=== PATIENT | male | born 1960 | race Caucasian/White ===

== ENCOUNTER 2025-03-25 04:37 | Emergency (ER) | payer OTHER, MEDICARE ==
[2025-03-25 05:49] LABS: Basophils # (A) 0.05 10*3/uL (0.00-0.10); Basophils % (A) 0.6 %; Eosinophils # (A) 0.22 10*3/uL (0.04-0.35); Eosinophils % (A) 2.6 %; HCT 37.1 % (39.6-50.0); HGB 12.7 g/dL (13.0-17.0); Lymphocytes # (A) 1.21 10*3/uL (0.90-5.00); Lymphocytes % (A) 14.3 %; MCH 29.9 pg (27.0-32.0); MCHC 34.2 g/dL (32.0-37.0); MCV 87.3 fL (80.0-97.0); Monocytes # (A) 0.72 10*3/uL (0.20-1.00); Monocytes % (A) 8.5 %; Neutrophils # (A) 6.25 10*3/uL (1.80-7.70); Neutrophils % (A) 73.6 %; Platelet Count 241 10*3/uL (140-440); RBC 4.25 10*6/uL (4.40-5.60); RDW 14.4 % (11.5-14.5); WBC 8.48 10*3/uL (4.50-10.00)
[2025-03-25 06:27] LABS: ALT 27 U/L (4-49); AST 30 U/L (17-59); African American GFR (CKD) 58 (>60 ml/min/1.73 sqM); Albumin 4.2 g/dL (3.5-5.0); Alkaline Phosphatase 65 U/L (38-126); Anion Gap 7 mmol/L; Blood Urea Nitrogen 30 mg/dL (9-20); Calcium 8.6 mg/dL (8.4-10.2); Carbon Dioxide 25 mmol/L (22-30); Chloride 108 mmol/L (98-107); Creatine Kinase 365 U/L (55-170); Glucose 119 mg/dL (74-99); Non-African American GFR(CKD) 51 (>60 ml/min/1.73 sqM); Potassium 4.7 mmol/L (3.5-5.1); Sodium 140 mmol/L (137-145); Total Protein 6.6 g/dL (6.3-8.2)
--- NOTE | 2025-03-25 06:29 | ED ---
General Adult HPI - General Chief complaint: Back Pain/Injury Stated complaint: Lower Back/Kidney Pain, Vomiting Time Seen by Provider: 03/25/25 04:50 Source: patient, RN notes reviewed Mode of arrival: ambulatory Limitations: no limitations - History of Present Illness Initial comments: 64-year-old male with no reported medical conditions presenting to emergency department with his for concerns of bilateral flank and back pain that started this morning at 1:00 and woke him up from sleep. He states that the pain is located to his flank on bilateral sides and mildly radiates. Denies radiation into his abdomen. States that he had episode of emesis this morning as well. Reports that yesterday he had 1 episode of what he reports as brown-colored urine however after that it has been clear. states that he had a fall about 4 days ago onto his back. Denies hematuria, dysuria, increased urinary frequency or urgency, previous surgeries of the abdomen, history of kidney stones. - Related Data Previous Rx's Medication Instructions Recorded HYDROcodone/APAP 5-325MG [[place] 5] 1 each PO Q6HR PRN #12 tab 03/25/25 Tamsulosin [Flomax] 0.4 mg PO DAILY #7 cap 03/25/25 Allergies Allergy/AdvReac Type Severity Reaction Status Date / Time No Known Allergies Allergy Verified 03/25/25 04:58 Review of Systems ROS Statement: Those systems with pertinent positive or pertinent negative responses have been documented in the HPI. ROS Other: All systems not noted in ROS Statement are negative. General Exam Limitations: no limitations Neck exam: Present: normal inspection. Absent: tenderness, meningismus, lymphadenopathy Respiratory exam: Present: normal lung sounds bilaterally. Absent: respiratory distress, wheezes, rales, rhonchi, stridor Cardiovascular Exam: Present: regular rate, normal rhythm, normal heart sounds. Absent: systolic murmur, diastolic murmur, rubs, gallop, clicks GI/Abdominal exam: Present: soft, normal bowel sounds. Absent: distended, tenderness, guarding, rebound, rigid Extremities exam: Present: normal inspection, full ROM, normal capillary refill. Absent: tenderness, pedal edema, joint swelling, calf tenderness Back exam: Present: tenderness (left flank ecchymosis and scabbing, no bleeding), CVA tenderness (L). Absent: CVA tenderness (R) Course Vital Signs 03/25/25 03/25/25 03/25/25 04:51 08:21 08:41 Temperature 98.2 F 98.4 F 98.0 F Pulse Rate 52 L 76 76 Respiratory 18 20 20 Rate Blood Pressure 166/85 145/79 146/76 O2 Sat by Pulse 99 99 99 Oximetry Medical Decision Making - Medical Decision Making Was pt. sent in by a medical professional or institution (, PA, DAYCARE WORKER, urgent care, hospital, or alf...) When possible be specific @ -No Did you speak to anyone other than the patient for history (EMS, parent, family, police, friend...)? What history was obtained from this source @ -No Did you review nursing and triage notes (agree or disagree)? Why? @ -I reviewed and agree with nursing and triage notes Were old charts reviewed (outside hosp., previous admission, EMS record, old EKG, old radiological studies, urgent care reports/EKG's, alf records)? Report findings @ -No old charts were reviewed Differential Diagnosis (chest pain, altered mental status, abdominal pain women, abdominal pain men, vaginal bleeding, weakness, fever, dyspnea, syncope, headache, dizziness, GI bleed, back pain, seizure, CVA, palpatations, mental health, musculoskeletal)? @ -Differential Back Pain: Strain, zoster, cauda equina syndrome, epidural abscess, vertebral osteomyelitis, discitis, fracture, subluxation, disc herniation, DJD, spinal stenosis, dissection, AAA, pancreatitis, peptic ulcer disease, pyelonephritis, kidney stone, this is not meant to be an all-inclusive list. EKG interpreted by me (3pts min.). @ -None X-rays interpreted by me (1pt min.). @ -None done CT interpreted by me (1pt min.). @ -CT of the abdomen and pelvis without contrast reveals a minimal left hydroureteronephrosis with an obstructing 4 mm calculus at the UPJ U/S interpreted by me (1pt. min.). @ -None done What testing was considered but not performed or refused? (CT, X-rays, U/S, labs)? Why? @ -None What meds were considered but not given or refused? Why? @ -None Did you discuss the management of the patient with other professionals (professionals i.e. , PA, DAYCARE WORKER, lab, RT, psych nurse, social sciences chair, logging worker, teacher, tank officer, supervisor case loading)? Give summary @ -No Was smoking cessation discussed for >3mins.? @ -No Was critical care preformed (if so, how long)? @ -No Were there social determinants of health that impacted care today? How? (Homelessness, low income, unemployed, alcoholism, drug addiction, transportation, low edu. Level, literacy, decrease access to med. care, [facility], rehab)? @ -No Was there de-escalation of care discussed even if they declined (Discuss DNR or withdrawal of care, Hospice)? DNR status @ -No What co-morbidities impacted this encounter? (DM, HTN, Smoking, COPD, CAD, Can cer, CVA, ARF, Chemo, Hep., AIDS, mental health diagnosis, sleep apnea, morbid obesity)? @ -None Was patient admitted / discharged? Hospital course, mention meds given and route, prescriptions, significant lab abnormalities, going to OR and other pertinent info. @ -Discharge. 64-year-old male presenting with complaints of bilateral flank pain left worse than right. Patient noted to have ecchymosis and scabbing over the left flank that is reproducible on examination, left CVA tenderness. He is provided with Tylenol for pain relief. Patient's labs reveal mild ALLY with a creatinine of 1.44 and a BUN of 30, elevated CK of 365. Urinalysis reveals red cells and blood with no signs of infection. He is provided with liter of fluids for ALLY. Believe that CK is mildly elevated due to exertional dehydration. CT imaging of the abdomen pelvis reveals a 4 mm obstructing calculus at the UPJ with a left hydroureteronephrosis. On reevaluation patient states that his pain is resolved after Tylenol administration. He is provided with outpatient prescription for [place] and Flomax and provided urology follow-up. Case discussed with my attending Dr. Shipman Undiagnosed new problem with uncertain prognosis? @ -No Drug Therapy requiring intensive monitoring for toxicity (Heparin, Nitro, Insulin, Cardizem)? @ -No Were any procedures done? @ -No Diagnosis/symptom? @ -kidney stone Acute, or Chronic, or Acute on Chronic? @ -acute Uncomplicated (without systemic symptoms) or Complicated (systemic symptoms)? @ -uncomplicated Side effects of treatment? @ -No Exacerbation, Progression, or Severe Exacerbation? @ -No Poses a threat to life or bodily function? How? (Chest pain, USA, MS, pneumonia, PE, COPD, DKA, ARF, appy, cholecystitis, CVA, Diverticulitis, Homicidal, Suici alice, threat to staff... and all critical care pts) @ -No - Lab Data Result diagrams: 03/25/25 05:25 03/25/25 05: Lab Results 03/25/25 03/25/25 03/25/25 Range/Units 05:25 05:25 06:37 WBC 8.48 (4.50-10.00) 10*3/uL RBC 4.25 L (4.40-5.60) 10*6/uL Hgb 12.7 L (13.0-17.0) g/dL Hct 37.1 L (39.6-50.0) % MCV 87.3 (80.0-97.0) fL MCH 29.9 (27.0-32.0) pg MCHC 34.2 (32.0-37.0) g/dL Plt Count 241 (140-440) 10*3/uL MPV 10.0 (9.5-12.2) fL Immature Gran % (Auto) 0.4 % Neutrophils % 73.6 % Lymphocytes % 14.3 % Monocytes % 8.5 % Eosinophils % 2.6 % Basophils % 0.6 % Immature Gran # 0.03 (0.00-0.04) 10*3/uL Neutrophils # 6.25 (1.80-7.70) 10*3/uL Lymphocytes # 1.21 (0.90-5.00) 10*3/uL Monocytes # 0.72 (0.20-1.00) 10*3/uL Eosinophils # 0.22 (0.04-0.35) 10*3/uL Basophils # 0.05 (0.00-0.10) 10*3/uL Sodium 140 (137-145) mmol/L Potassium 4.7 (3.5-5.1) mmol/L Chloride 108 H (98-107) mmol/L Carbon Dioxide 25 (22-30) mmol/L Anion Gap 7 mmol/L BUN 30 H (9-20) mg/dL Creatinine 1.44 H (0.66-1.25) mg/dL Est GFR (CKD-EPI)AfAm 58 (>60 ml/min/1.73 sqM) Est GFR (CKD-EPI)NonAf 51 (>60 ml/min/1.73 sqM) Glucose 119 H (74-99) mg/dL Calcium 8.6 (8.4-10.2) mg/dL Total Bilirubin 0.4 (0.2-1.3) mg/dL AST 30 (17-59) U/L ALT 27 (4-49) U/L Alkaline Phosphatase 65 (38-126) U/L Creatine Kinase 365 H (55-170) U/L Total Protein 6.6 (6.3-8.2) g/dL Albumin 4.2 (3.5-5.0) g/dL Urine Color Colorless Urine Appearance Clear (Clear) Urine pH 5.5 (5.0-8.0) Ur Specific [place] 1.017 (1.001-1.035) Urine Protein Negative (Negative) Urine Glucose (UA) Negative (Negative) Urine Ketones Trace H (Negative) Urine Blood Large H (Negative) Urine Nitrite Negative (Negative) Urine Bilirubin Negative (Negative) Urine Urobilinogen <2.0 (<2.0) mg/dL Ur Leukocyte Esterase Negative (Negative) Urine RBC >182 H (0-5) /hpf Urine WBC 1 (0-5) /hpf Ur Squamous Epith Cells <1 (0-4) /hpf Urine Bacteria Rare H (None) /hpf Urine Mucus Rare H (None) /hpf Disposition Clinical Impression: Kidney stone on left side Disposition: HOME SELF-CARE Condition: Good Instructions (If sedation given, give patient instructions): Kidney Stones (ED) Additional Instructions: Please return to the Emergency Department if symptoms worsen or any other concerns. Prescriptions: Tamsulosin [Flomax] 0.4 mg PO DAILY #7 cap HYDROcodone/APAP 5-325MG [[place] 5] 1 each PO Q6HR PRN #12 tab PRN Reason: Pain Is patient prescribed a controlled substance at d/c from ED?: Yes When asked, does pt state using other controlled substances?: No If prescribed controlled substance>3 days was MAPS reviewed?: Prescribed <3 Days If Rx opioid, was Start Talking consent form obtained?: Yes Referrals: None,Stated [Primary Care Provider] - 1-2 days Betrus,Madi, MD [STAFF PHYSICIAN] - 1-2 days Time of Disposition: 08:34
[2025-03-25] MEDS: SODIUM CHLORIDE 0.9% 1,000 ML IV ONE (07:03)
[2025-03-25 07:05] LABS: Bacteria,Urine Rare /hpf; Bilirubin,Urine Negative (Negative); Blood,Urine Large (Negative); Color,Urine Colorless; Glucose,Urine (UA) Negative (Negative); Ketones,Urine Trace (Negative); Leukocyte Esterase,Urine Negative (Negative); Mucus,Urine Rare /hpf; Nitrite,Urine Negative (Negative); PH, Urine 5.5 (5.0-8.0); Protein,Urine Negative (Negative); RBC,Urine >182 /hpf (0-5); Specific Gravity,Urine 1.017 (1.001-1.035); Squamous Epithelial Cell,Urine <1 /hpf (0-4); Urobilinogen,Urine <2.0 mg/dL (<2.0); WBC,Urine 1 /hpf (0-5)
[2025-03-25] MEDS: ACETAMINOPHEN TAB 500 MG TAB PO STA (07:26)
--- NOTE | 2025-03-25 08:11 | CT ---
EXAMINATION TYPE: CT abdomen pelvis wo con CT DLP: 751.6 mGycm, Automated exposure control for dose reduction was used. DATE OF EXAM: 03/25/2025 7:51 AM COMPARISON: None CLINICAL INDICATION:Male, 64 years old with history of flank pain, hematuria; Flank pain, hematuria TECHNIQUE: Standard CT of the abdomen and pelvis without IV or oral contrast. Lack of IV or oral co ntrast limits evaluation of solid and hollow organ viscera. Coronal and sagittal reformats were perfo rmed. FINDINGS: LOWER CHEST: Unremarkable noncontrast appearance ABDOMEN LIVER: Anterior left hepatic lobe 1.4 cm cyst. Additional anterior right hepatic lobe probable subcen timeter cyst. GALLBLADDER AND BILE DUCTS: Unremarkable noncontrast appearance PANCREAS: Unremarkable noncontrast appearance SPLEEN: Unremarkable noncontrast appearance ADRENAL GLANDS: Unremarkable noncontrast appearance. KIDNEYS AND URETERS: No right-sided hydronephrosis or calculus. No right hydroureter or ureteral calc ulus. Minimal left hydroureteronephrosis with an obstructing 4 mm calculus of the ureter pelvic junct ion. Mild left periureteral and perinephric fat stranding. PELVIS BLADDER: Incompletely distended but grossly unremarkable. REPRODUCTIVE: Coarse calcifications of the prostate gland are identified. ABDOMEN & PELVIS STOMACH AND BOWEL: Stomach and duodenum are unremarkable. The appendix is within normal limits. Dista l colonic diverticulosis without evidence for acute diverticulitis. Mildly redundant sigmoid colon. N o bowel wall thickening or surrounding inflammatory changes. No evidence of bowel obstruction. PERITONEUM: No evidence of pneumoperitoneum or free fluid. VASCULATURE: No evidence of aortic aneurysm. MUSCULOSKELETAL: No acute osseous abnormalities. Mild disc degeneration changes are present throughou t the thoracolumbar spine. LYMPH NODES: No gross evidence for lymphadenopathy. SOFT TISSUE/ABDOMINAL WALL: Tiny fat filled umbilical hernia. IMPRESSION: 1. Minimal left hydroureteronephrosis with an obstructing 4 mm calculus at the ureteropelvic junction . 2. Colonic diverticulosis without evidence for acute diverticulitis. [facility], , 03/25/2025 8:09 AM
[2025-03-25 08:22] VITALS: PULSE 76; RESP 20
[2025-03-25 08:43] VITALS: BP 146/76; TEMP 98
== END 2025-03-25 08:42 | disposition home or self-care (01) ==
LOC: EC 04:37
DX: N20.0 Calculus of kidney (principal)
CPT/HCPCS: 36415; 51701; 74176; 80053; 81001; 82550; 85025; 99284